=== PATIENT | male | born 1955 | race Caucasian/White ===

== ENCOUNTER 2024-01-31 17:04 | Outpatient (REF) | payer MEDICARE, SELFPAY | END 2024-01-31 17:05 | disposition home or self-care (01) | LOC: HO.MRI 17:04 | PROVIDERS: PCP Internal Medicine; Visit Provider Orthopaedic Surgery | DX: Z13.89 Encounter for screening for other disorder (principal) ==

== ENCOUNTER 2024-02-03 13:28 | Outpatient (REF) | payer MEDICARE, SELFPAY | END 2024-02-03 13:29 | disposition home or self-care (01) | LOC: HO.MRI 13:28 | PROVIDERS: PCP Internal Medicine; Visit Provider Orthopaedic Surgery | DX: M50.122 Cervical disc disorder at C5-C6 level with radiculopathy (principal) | CPT/HCPCS: 72141 ==